=== PATIENT | female | born 1980 | race Hispanic/Latino ===

== ENCOUNTER 2019-09-15 13:00 | Emergency (ER) | payer SELFPAY ==
[2019-09-15] MEDS ORDERED: LIDOCAINE 1% MPF 5 ML VIAL ONE (14:58)
[2019-09-15] MEDS ORDERED: HYDROCODONE/APAP 5/325 MG TAB ONE (14:59)
[2019-09-15] MEDS ORDERED: BUPIVACAINE 0.5% PF 10 ML VIAL ONE (15:30)
[2019-09-15] MEDS ORDERED: SMZ./TMP. 800/160 MG TABLET ONE (15:57)
--- NOTE | 2019-09-15 16:19 | EDPHYS ---
Physician Documentation [facility] Name: Cary aDlton Age: 39 yrs Sex: Female : 1980 Arrival Date: 09/15/2019 Time: 13:02 Bed 6 Private MD: KELLEY Physician Cordell Eaton BARREL BANDER: 09/15 13:26 LMP 09/14/2019 aa5 Historical: - Allergies: 13:26 No Known Allergies; aa5 - PMHx: 13:26 None; aa5 - PSHx: 13:26 Tubal ligation; aa5 - Immunization history:: Adult Immunizations unknown. - Social history:: Smoking status: Patient uses tobacco products, smokes one-half pack cigarettes per day. - Ebola Screening: : No symptoms or risks identified at this time. Vital Signs: 13:26 BP 104 / 74; Pulse 107; Resp 16 S; Temp 97.0(TE); Pulse Ox 100% on R/A; Weight 58.97 kg aa5 (R); Height 4 ft. 11 in. (149.86 cm) (R); Pain 8/10; 15:00 BP 108 / 76; Pulse 100; Resp 15; Pulse Ox 100% on R/A; Pain 7/10; hb 16:00 BP 112 / 74; Pulse 92; Resp 16; Pulse Ox 100% on R/A; hb 13:26 Body Mass Index 26.26 (58.97 kg, 149.86 cm) aa5 Procedures: 15:48 I \T\ D: Incision and drainage was performed for an abscess of the left left middle kb fingernail Prepped with alcohol, Anesthetized with lidocaine/marcaine digital block. Incised with 18G needle. Drained large amount purulent fluid. the patient tolerated the procedure well. Nerve block: (digital) of left middle fingernail Medication: Lidocaine 1% without epinephrine Marcaine 0.5%, Amount: 5 mls were injected, Effect: the patient has resolution of the pain, Set up for procedure. Performed by Almaz MILLER Patient tolerated well. MDM: 14:37 Patient medically screened. tw4 09/15 15:47 Order name: Wound Culture kb Administered Medications: 15:01 Drug: [place] 5 mg-325 mg 1 tabs Route: PO; hb 15:50 Follow up: Response: No adverse reaction hb 15:20 Drug: Lidocaine (1 %) 5 units Volume: 5 ml; Route: Infiltration; hb 16:00 Follow up: Response: No adverse reaction hb 15:40 Drug: Marcaine (0.5 %) 10 ml Volume: 10 ml; Route: Infiltration; hb 16:15 Follow up: Response: No adverse reaction hb 16:15 Drug: Bactrim (160 mg-800 mg (DS) 1 tablet Route: PO; hb 16:31 Follow up: Response: Medication administered at discharge. hb Disposition: 09/16 07:20 Co-signature as Attending Physician, Cordell Eaton MD I agree with the assessment and tw4 plan of care. Disposition: 09/15/19 16:18 Discharged to Home. Impression: Cutaneous abscess of right hand. - Condition is Stable. - Discharge Instructions: Incision and Drainage, Skin Abscess, [id number], Paronychia, [id number]. - Prescriptions for Bactrim DS 800- 160 mg Oral Tablet - take 1 tablet by ORAL route every 12 hours for 5 days; 10 tablet. Ibuprofen 800 mg Oral Tablet - take 1 tablet by ORAL route every 8 hours As needed take with food; 30 tablet. Tylenol- Codeine #3 300-30 mg Oral Tablet - take 2 tablet by ORAL route every 6 hours As needed; 6 tablet. - Medication Reconciliation Form, Thank You Letter, Antibiotic Education, Prescription Opioid Use form. - Follow up: Private Physician; When: Upon discharge from the Emergency Department; Reason: Recheck today's complaints, Continuance of care. - Problem is new. - Symptoms have improved. Signatures: Dispatcher [employer] EDNM Almaz Santamaria, ANGELA FINNEGAN-Kristine Conde, RN RN aa5 Leia Vickers, RN RN Cordell Eaton MD MD tw4 Corrections: (The following items were deleted from the chart) 09/15 16:32 16:18 09/15/2019 16:18 Discharged to Home. Impression: Cutaneous abscess of right hand. hb Condition is Stable. Forms are Medication Reconciliation Form, Thank You Letter, Antibiotic Education, Prescription Opioid Use. Follow up: Private Physician; When: Upon discharge from the Emergency Department; Reason: Recheck today's complaints, Continuance of care. Problem is new. Symptoms have improved. tw4
--- NOTE | 2019-09-15 16:19 | ER ---
Nurse's Notes [facility] Name: Cary Dalton Age: 39 yrs Sex: Female : 1980 Arrival Date: 09/15/2019 Time: 13:02 Bed 6 Private MD: Diagnosis: Cutaneous abscess of right hand Presentation: 09/15 13:25 Presenting complaint: Patient states: pain, redness, and swelling to distal aspect of aa5 left middle finger that began 2 days ago. Transition of care: patient was not received from another setting of care. Onset of symptoms was 2019. Risk Assessment: Do you want to hurt yourself or someone else? Patient reports no desire to harm self or others. Initial Sepsis Screen: Does the patient meet any 2 criteria? No. Patient's initial sepsis screen is negative. Does the patient have a suspected source of infection? No. Patient's initial sepsis screen is negative. Care prior to arrival: None. 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 - Social history:: Smoking status: Patient uses tobacco products, smokes one-half pack cigarettes per day. - Ebola Screening: : No symptoms or risks identified at this time. Screenin:01 Abuse screen: Denies threats or abuse. Denies injuries from another. Nutritional hb screening: No deficits noted. Tuberculosis screening: No symptoms or risk factors identified. Fall Risk None identified. Assessment: 14:40 General: Appears in no apparent distress. Behavior is calm, cooperative. Pain: Pain hb currently is 8 out of 10 on a pain scale. Neuro: Level of Consciousness is awake, alert, obeys commands, Oriented to person, place, time, situation. Cardiovascular: Capillary refill < 3 seconds Patient's skin is warm and dry. Respiratory: Airway is patent Respiratory effort is even, unlabored, Respiratory pattern is regular, symmetrical. GI: No signs and/or symptoms were reported involving the gastrointestinal system. : No signs and/or symptoms were reported regarding the genitourinary system. EENT: No signs and/or symptoms were reported regarding the EENT system. Derm: swelling noted to left middle finger cuticle. Musculoskeletal: No signs and/or symptoms reported regarding the musculoskeletal system. 15:20 Reassessment: Patient appears in no apparent distress at this time. Patient and/or hb family updated on plan of care and expected duration. Pain level reassessed. Patient is alert, oriented x 3, equal unlabored respirations, skin warm/dry/pink. 16:15 Reassessment: Patient appears in no apparent distress at this time. Patient and/or hb family updated on plan of care and expected duration. Pain level reassessed. Patient is alert, oriented x 3, equal unlabored respirations, skin warm/dry/pink. Vital Signs: 13:26 BP 104 / 74; Pulse 107; Resp 16 S; Temp 97.0(TE); Pulse Ox 100% on R/A; Weight 58.97 kg aa5 (R); Height 4 ft. 11 in. (149.86 cm) (R); Pain 8/10; 15:00 BP 108 / 76; Pulse 100; Resp 15; Pulse Ox 100% on R/A; Pain 7/10; hb 16:00 BP 112 / 74; Pulse 92; Resp 16; Pulse Ox 100% on R/A; hb 13:26 Body Mass Index 26.26 (58.97 kg, 149.86 cm) aa5 ED Course: 13:02 Patient arrived in ED. as 13:26 Triage completed. aa5 13:26 Arm band placed on. aa5 14:37 Cordell Eaton MD is Attending Physician. tw4 14:40 Patient has correct armband on for positive identification. Bed in low position. Call hb light in reach. 15:00 Leia Vickers, LORE is Primary Nurse. hb 16:31 No provider procedures requiring assistance completed. Patient did not have IV access hb during this emergency room visit. Administered Medications: 15:01 Drug: [place] 5 mg-325 mg 1 tabs Route: PO; hb 15:50 Follow up: Response: No adverse reaction hb 15:20 Drug: Lidocaine (1 %) 5 units Volume: 5 ml; Route: Infiltration; hb 16:00 Follow up: Response: No adverse reaction hb 15:40 Drug: Marcaine (0.5 %) 10 ml Volume: 10 ml; Route: Infiltration; hb 16:15 Follow up: Response: No adverse reaction hb 16:15 Drug: Bactrim (160 mg-800 mg (DS) 1 tablet Route: PO; 16:31 Follow up: Response: Medication administered at discharge. Outcome: 16:18 Discharge ordered by . tw4 16:31 Discharged to home ambulatory, with family. hb 16:31 Condition: stable 16:31 Discharge instructions given to patient, family, Instructed on discharge instructions, follow up and referral plans. medication usage, wound care, Demonstrated understanding of instructions, follow-up care, medications, Prescriptions given X 3. 16:32 Patient left the ED. Addendum: 09/20/2019 16:23 Addendum: Culture Results: Positive urine culture. Phone call Attempt #1 Not a working s s number Certified letter sent to listed address for patient. Signatures: Saima Alonso Audri, RN RN aa5 Radha Nava RN RN Leia Vickers RN RN Cordell Eaton MD MD tw4
[2019-09-15 16:50] VITALS: TEMP 97; O2SAT 100
[2019-09-15 16:52] VITALS: BP 112/74
== END 2019-09-15 16:32 | disposition home or self-care (01) ==
LOC: ER 13:00
PROC: 0H9GXZZ Drainage of Left Hand Skin, External Approach (ICD-10-PCS; principal; 2019-09-15)
DX: L02.511 Cutaneous abscess of right hand (principal); F17.210 Nicotine dependence, cigarettes, uncomplicated
CPT/HCPCS: 64450; 87070; 87077; 87186; 87205; 99283

== ENCOUNTER 2021-12-20 06:42 | Emergency (ER) | payer SELFPAY ==
[2021-12-20] MEDS ORDERED: ONDANSETRON 4 MG/2 ML VIAL ONE ×2 (07:37→08:23)
[2021-12-20] MEDS ORDERED: MORPHINE 4 MG/ML SYR ONE (07:37)
[2021-12-20] MEDS ORDERED: NA CHLORIDE 0.9% 1,000 ML ONE ×2 (07:38→08:23)
[2021-12-20 07:57] LABS: Absolute Lymphocytes (CBC) 1.1 K/uL (0.7-4.9); Hematocrit 39.1 % (36.0-45.0); Lymphocytes % 8.1 % (15.3-44.8); MPV 8.2 fL (7.6-11.3); RBC Red Blood Cell Count 4.37 M/uL (3.86-4.86)
--- NOTE | 2021-12-20 08:01 | RAD REPORT ---
EXAM DESCRIPTION: CTStone Protocol - 12/20/2021 7:53 am CLINICAL HISTORY: ABD PAIN COMPARISON: No comparisons TECHNIQUE: CT of the abdomen and pelvis was performed. All CT scans are performed using dose optimization technique as appropriate and may include automated exposure control or mA/KV adjustment according to patient size. FINDINGS: Lower chest: Small hiatal hernia. Liver: Benign-appearing low-density lesion in the right hepatic lobe measuring 4.3 cm. A second small er lesion is present in the inferior aspect of the right hepatic lobe measuring 1.9 cm which also has benign imaging features. . Biliary: No biliary ductal dilatation. Stomach: No significant focal abnormality. Duodenum: No significant focal abnormality. Pancreas: No significant abnormality. Spleen: No significant abnormality. Adrenal: No suspicious lesions. Kidney/ureter: Mild right-sided hydroureteronephrosis secondary to a 5 mm stone at the right distal u reter. Other right renal calculi noted measuring 7 millimeters in aggregate. Retroperitoneum: No retroperitoneal adenopathy. Vascular: No aneurysm. Bowel: Diverticulosis. No evidence of acute diverticulitis.. Normal appendix. Peritoneum: No ascites or free air. Bladder: Grossly unremarkable. Reproductive: No adnexal masses. Bones: No acute fracture. Other: n/a IMPRESSION: Mild right-sided hydroureteronephrosis secondary to a 5 mm stone at the right distal ure ter.
--- NOTE | 2021-12-20 08:06 | RAD REPORT ---
EXAM DESCRIPTION: US - Abdomen Exam Limited - 12/20/2021 8:00 am CLINICAL HISTORY: ABD PAIN COMPARISON: Stone Protocol dated 12/20/2021 FINDINGS: The gallbladder demonstrates no gallstones. No pericholecystic fluid or gallbladder wall t hickening. The common bile duct is normal measuring 3 mm. The liver demonstrates no findings of intrahepatic biliary dilatation. IMPRESSION: Unremarkable examination.
--- NOTE | 2021-12-20 08:12 | ER ---
Nurse's Notes [facility] Name: Cary Dalton Age: 41 yrs Sex: Female : 1980 Arrival Date: 12/20/2021 Time: 06:47 Bed 13 Private MD: Diagnosis: Hydronephrosis with renal and ureteral calculous obstruction-5 mm distal right ;Hypokalemia Presentation: 12/20 07:16 Chief complaint: Patient states: she started having severe right abdominal pain last ap3 night 12/19/2021. Patient states pain came on suddenly and lasted through the night. Coronavirus screen: At this time, the client does not indicate any symptoms associated with coronavirus-19. Ebola Screen: No symptoms or risks identified at this time. Risk Assessment: Do you want to hurt yourself or someone else? Patient reports no desire to harm self or others. Onset of symptoms was December 19, 2021. 07:16 Method Of Arrival: Wheelchair ap3 07:16 Acuity: MARK 3 ap3 07:16 Initial Sepsis Screen: Does the patient meet any 2 criteria? No. Patient's initial bp sepsis screen is negative. Does the patient have a suspected source of infection? No. Patient's initial sepsis screen is negative. Triage Assessment: 07:21 General: Appears distressed, uncomfortable, Behavior is crying, restless. Pain: ap3 Complains of pain in right upper quadrant and right lower quadrant Pain currently is 10 out of 10 on a pain scale. Pain began suddenly, last night Noted to be crying, grimacing, guarding, moaning, restless, Also complains of nausea. Neuro: Level of Consciousness is awake, alert, obeys commands, Oriented to person, place, time, situation. Cardiovascular: Patient's skin is warm and dry. Respiratory: Airway is patent Respiratory effort is even, unlabored, Respiratory pattern is regular, symmetrical. GI: Reports lower abdominal pain, upper abdominal pain, nausea, vomiting. 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 Flu vaccine is not up to date. - Social history:: Smoking status: Patient reports the use of cigarette tobacco products, smokes one-half pack cigarettes per day. Screenin:23 Abuse screen: Denies threats or abuse. Nutritional screening: No deficits noted. ap3 Tuberculosis screening: No symptoms or risk factors identified. 07:24 Fall Risk None identified. No fall in past 12 months (0 pts). No secondary diagnosis (0 ap3 pts). Assessment: 07:20 General: SEE TRIAGE NOTE. GI: Abdomen is non-distended. bp 08:30 Reassessment: D/C ON HELD FOR IVF, LABS AND MEDS. bp 10:30 Reassessment: IVF INFUSING. bp 11:10 Reassessment: IVF AND MEDICATION COMPLETED. PT D/C HOME AMBULATORY WITH FAMILY, DX WITH bp HYDRONEPHROSIS AND URETERAL STONE. Vital Signs: 07:16 BP 129 / 84; Pulse 86; Resp 24; Temp 98.6(TE); Pulse Ox 100% ; Weight 65.77 kg; Height bp 4 ft. 11 in. (149.86 cm); Pain 10/10; 09:30 BP 131 / 87; Pulse 85; Resp 20; Pulse Ox 100% ; bp 11:12 BP 121 / 79; Pulse 81; Resp 17; Pulse Ox 100% ; bp 07:16 Body Mass Index 29.29 (65.77 kg, 149.86 cm) bp ED Course: 06:47 Patient arrived in ED. bp1 07:17 Triage completed. ap3 07:20 Evangelist Art, LORE is Primary Nurse. bp 07:23 Davis Machado MD is Attending Physician. aneta 07:23 Arm band placed on. bp 07:24 Patient has correct armband on for positive identification. Bed in low position. Call ap3 light in reach. Side rails up X2. Adult w/ patient. Pulse ox on. NIBP on. Door closed. Noise minimized. Warm blanket given. 07:45 Inserted saline lock: 20 gauge in right forearm, using aseptic technique. Blood bp collected. 07:55 CT Stone Protocol In Process Unspecified. EDMS 08:01 US Abdomen Limited In Process Unspecified. EDMS 08:11 Andres Darby MD is Referral Physician. aneta 11:12 No provider procedures requiring assistance completed. IV discontinued, intact, bp bleeding controlled, No redness/swelling at site. Pressure dressing applied. Administered Medications: 07:45 Drug: NS 0.9% 1000 ml Route: IV; Rate: 1 bolus; Site: right forearm; bp 09:40 Follow up: IV Status: Completed infusion; IV Intake: 1000ml bp 07:45 Drug: Zofran (Ondansetron) 4 mg Route: IVP; Site: right forearm; bp 09:40 Follow up: Response: No adverse reaction bp 07:45 Drug: morphine 4 mg Route: IVP; Site: right forearm; bp 09:39 Follow up: Response: No adverse reaction bp 07:45 Drug: Zofran (Ondansetron) 4 mg Route: IVP; Site: right forearm; bp 09:39 Follow up: Response: No adverse reaction bp 08:15 Drug: Ketorolac 30 mg Route: IVP; Site: right forearm; bp 09:39 Follow up: Response: Pain is decreased bp 08:15 Drug: NS 0.9% 1000 ml Route: IV; Rate: 1 bolus; Site: right forearm; bp 11:13 Follow up: IV Status: Completed infusion; IV Intake: 1000ml bp 08:15 Drug: Dilaudid (HYDROmorphone) 1 mg Route: IVP; Site: right forearm; bp 09:39 Follow up: Response: Pain is decreased bp 08:15 Drug: Zofran (Ondansetron) 4 mg Route: IVP; Site: right forearm; bp 09:39 Follow up: Response: Nausea is decreased bp 08:15 Drug: Rocephin (cefTRIAXone) 1 grams Route: IV; Rate: per protocol; Site: right forearm;bp 09:38 Follow up: IV Status: Completed infusion; IV Intake: 50ml bp 08:15 Drug: Flomax (tamsulosin) 0.4 mg Route: PO; bp 09:39 Follow up: Response: No adverse reaction bp 10:02 Drug: Potassium Effervescent Tablet 50 mEq Route: PO; bp 10:02 Follow up: Response: No adverse reaction bp Intake: 09:38 IV: 50ml; Total: 50ml. bp 09:40 IV: 1000ml; Total: 1050ml. bp 11:13 IV: 1000ml; Total: 2050ml. bp Outcome: 08:11 Discharge ordered by . aneta 11:12 Discharged to home ambulatory, with family. bp 11:12 Condition: stable 11:12 Discharge instructions given to patient, Instructed on discharge instructions, follow up and referral plans. medication usage, Demonstrated understanding of instructions, follow-up care, medications, Prescriptions given X 4. 11:13 Patient left the ED. bp Signatures: Dispatcher [employer] EDDavis Lucas MD MD cha Peltier, Brian RN RN bp Nolvia Delgado RN RN ap3 Bettie Salgado bp1 Corrections: (The following items were deleted from the chart) 07:23 07:16 BP 129 / 84; Temp 98.6F Temporal; 65.77 kg; Height 4 ft. 11 in.; BMI: 29.2; Pain bp 10/10; ap3
--- NOTE | 2021-12-20 08:12 | EDPHYS ---
Physician Documentation [facility] Name: Cary Dalton Age: 41 yrs Sex: Female : 1980 Arrival Date: 12/20/2021 Time: 06:47 Bed 13 Private MD: KELLEY Physician Davis Machado HPI: 12/20 08:08 This 41 yrs old Female presents to ER via Wheelchair with complaints of aneta Vomiting, Abdominal Pain. 08:08 The patient presents to the emergency department with nausea, vomiting, abdominal pain, aneta of the posterior aspect of right lateral abdomen, anterior aspect of right lateral abdomen and right lower quadrant. Onset: The symptoms/episode began/occurred 1 day(s) ago. Possible causes: unknown. The symptoms are aggravated by nothing. The symptoms are alleviated by nothing. Associated signs and symptoms: Pertinent positives: abdominal pain, nausea, vomiting. Severity of symptoms: At their worst the symptoms were severe in the emergency department the symptoms are unchanged. The patient has not experienced similar symptoms in the past. CLINICAL SERVICES SPECIALIST: 07:24 LMP N/A - patient states she can't remember ap3 Historical: - Allergies: 07:17 No Known Allergies; ap3 - Home Meds: 07:17 None [Active]; ap3 - PMHx: 07:17 None; ap3 - Immunization history:: Client reports having NOT received the Covid vaccine. Flu vaccine is not up to date. - Social history:: Smoking status: Patient reports the use of cigarette tobacco products, smokes one-half pack cigarettes per day. ROS: 08:09 Constitutional: Negative for fever, chills, and weight loss, Eyes: Negative for injury, aneta pain, redness, and discharge, ENT: Negative for injury, pain, and discharge, Neck: Negative for injury, pain, and swelling, Cardiovascular: Negative for chest pain, palpitations, and edema, Respiratory: Negative for shortness of breath, cough, wheezing, and pleuritic chest pain, : Negative for injury, bleeding, discharge, and swelling, MS/Extremity: Negative for injury and deformity, Skin: Negative for injury, rash, and discoloration, Neuro: Negative for headache, weakness, numbness, tingling, and seizure, Psych: Negative for depression, anxiety, suicide ideation, homicidal ideation, and hallucinations, Allergy/Immunology: Negative for hives, rash, and allergies, Endocrine: Negative for neck swelling, polydipsia, polyuria, polyphagia, and marked weight changes, Hematologic/Lymphatic: Negative for swollen nodes, abnormal bleeding, and unusual bruising. 08:09 Abdomen/GI: Positive for abdominal pain, nausea and vomiting, of the posterior aspect of right lateral abdomen, anterior aspect of right lateral abdomen and right lower quadrant. 08:09 Back: Positive for flank pain, on the right. Exam: 08:09 Constitutional: This is a well developed, well nourished patient who is awake, alert, aneta and in no acute distress. Head/Face: Normocephalic, atraumatic. Eyes: Pupils equal round and reactive to light, extra-ocular motions intact. Lids and lashes normal. Conjunctiva and sclera are non-icteric and not injected. Cornea within normal limits. Periorbital areas with no swelling, redness, or edema. ENT: Nares patent. No nasal discharge, no septal abnormalities noted. Tympanic membranes are normal and external auditory canals are clear. Oropharynx with no redness, swelling, or masses, exudates, or evidence of obstruction, uvula midline. Mucous membranes moist. Neck: Trachea midline, no thyromegaly or masses palpated, and no cervical lymphadenopathy. Supple, full range of motion without nuchal rigidity, or vertebral point tenderness. No Meningismus. Chest/axilla: Normal chest wall appearance and motion. Nontender with no deformity. No lesions are appreciated. Cardiovascular: Regular rate and rhythm with a normal S1 and S2. No gallops, murmurs, or rubs. Normal PMI, no JVD. No pulse deficits. Respiratory: Lungs have equal breath sounds bilaterally, clear to auscultation and percussion. No rales, rhonchi or wheezes noted. No increased work of breathing, no retractions or nasal flaring. Abdomen/GI: Soft, non-tender, with normal bowel sounds. No distension or tympany. No guarding or rebound. No evidence of tenderness throughout. Back: No spinal tenderness. No costovertebral tenderness. Full range of motion. Female : Normal external genitalia. Skin: Warm, dry with normal turgor. Normal color with no rashes, no lesions, and no evidence of cellulitis. MS/ Extremity: Pulses equal, no cyanosis. Neurovascular intact. Full, normal range of motion. Neuro: Awake and alert, GCS 15, oriented to person, place, time, and situation. Cranial nerves II-XII grossly intact. Motor strength 5/5 in all extremities. Sensory grossly intact. Cerebellar exam normal. Normal gait. Psych: Awake, alert, with orientation to person, place and time. Behavior, mood, and affect are within normal limits. Vital Signs: 07:16 BP 129 / 84; Pulse 86; Resp 24; Temp 98.6(TE); Pulse Ox 100% ; Weight 65.77 kg; Height bp 4 ft. 11 in. (149.86 cm); Pain 10/10; 09:30 BP 131 / 87; Pulse 85; Resp 20; Pulse Ox 100% ; bp 11:12 BP 121 / 79; Pulse 81; Resp 17; Pulse Ox 100% ; bp 07:16 Body Mass Index 29.29 (65.77 kg, 149.86 cm) bp MDM: 07:23 Patient medically screened. aneta 08:10 Differential diagnosis: nephrolithiasis, pyelonephritis, UTI, cholecystitis, aneta pancreatitis, gastroenteritis. Data reviewed: vital signs, nurses notes, lab test result(s), radiologic studies, CT scan. Data interpreted: quality assurance monitor chassis: rate is 86 beats/min, rhythm is regular, Pulse oximetry: on room air is 100 %. Counseling: I had a detailed discussion with the patient and/or guardian regarding: the historical points, exam findings, and any diagnostic results supporting the discharge/admit diagnosis, lab results, radiology results, the need for outpatient follow up, for definitive care, a family practitioner, a urologist. 12/20 07:24 Order name: CBC with Diff; Complete Time: 09:40 [facility] 12/20 07:24 Order name: CMP; Complete Time: 09:40 [facility] 12/20 07:24 Order name: Lipase; Complete Time: 09:40 [facility] 12/20 07:24 Order name: Urine Microscopic Only [facility] 12/20 08:02 Order name: CBC Smear Scan; Complete Time: 09:40 EDMT 12/20 09:36 Order name: Urine Dipstick-Ancillary; Complete Time: 09:40 EDMT 12/20 07:24 Order name: CT Stone Protocol; Complete Time: 08:06 [facility] 12/20 07:32 Order name: US Abdomen Limited; Complete Time: 08:06 [facility] 12/20 10:21 Order name: Urine Culture EDMT 12/20 07:24 Order name: IV Saline Lock; Complete Time: 08:02 aneta 12/20 07:24 Order name: Labs collected and sent; Complete Time: 08:02 [facility] 12/20 07:24 Order name: Urine Dipstick-Ancillary (obtain specimen); Complete Time: 09:40 aneta 12/20 07:24 Order name: Urine Test (obtain specimen); Complete Time: 09:40 [facility] 12/20 08:04 Order name: Labs - recollect needed: recollect all tubes; Complete Time: 09:31 bd 12/20 09:40 Order name: PO challenge: juice; Complete Time: 09:41 [facility] Administered Medications: 07:45 Drug: NS 0.9% 1000 ml Route: IV; Rate: 1 bolus; Site: right forearm; bp 09:40 Follow up: IV Status: Completed infusion; IV Intake: 1000ml bp 07:45 Drug: Zofran (Ondansetron) 4 mg Route: IVP; Site: right forearm; bp 09:40 Follow up: Response: No adverse reaction bp 07:45 Drug: morphine 4 mg Route: IVP; Site: right forearm; bp 09:39 Follow up: Response: No adverse reaction bp 07:45 Drug: Zofran (Ondansetron) 4 mg Route: IVP; Site: right forearm; bp 09:39 Follow up: Response: No adverse reaction bp 08:15 Drug: Ketorolac 30 mg Route: IVP; Site: right forearm; bp 09:39 Follow up: Response: Pain is decreased bp 08:15 Drug: NS 0.9% 1000 ml Route: IV; Rate: 1 bolus; Site: right forearm; bp 11:13 Follow up: IV Status: Completed infusion; IV Intake: 1000ml bp 08:15 Drug: Dilaudid (HYDROmorphone) 1 mg Route: IVP; Site: right forearm; bp 09:39 Follow up: Response: Pain is decreased bp 08:15 Drug: Zofran (Ondansetron) 4 mg Route: IVP; Site: right forearm; bp 09:39 Follow up: Response: Nausea is decreased bp 08:15 Drug: Rocephin (cefTRIAXone) 1 grams Route: IV; Rate: per protocol; Site: right forearm;bp 09:38 Follow up: IV Status: Completed infusion; IV Intake: 50ml bp 08:15 Drug: Flomax (tamsulosin) 0.4 mg Route: PO; bp 09:39 Follow up: Response: No adverse reaction bp 10:02 Drug: Potassium Effervescent Tablet 50 mEq Route: PO; bp 10:02 Follow up: Response: No adverse reaction bp Disposition Summary: 12/20/21 08:11 Discharge Ordered Location: Home aneta Problem: new aneta Symptoms: have improved aneta Condition: Stable aneta Diagnosis - Hydronephrosis with renal and ureteral calculous obstruction - 5 mm distal right aneta - Hypokalemia aneta Followup: aneta - With: Private Physician - When: 2 - 3 days - Reason: Recheck today's complaints, Continuance of care, Re-evaluation by your physician Followup: aneta - With: Andres Darby MD - When: 2 - 3 days - Reason: Recheck today's complaints, Re-evaluation by your physician Discharge Instructions: - Discharge Summary Sheet aneta - Kidney Stones aneta - Kidney Stones, [id number] aneta - Hydronephrosis aneta - Dietary Guidelines to Help Prevent Kidney Stones aneta Forms: - Medication Reconciliation Form aneta - Thank You Letter aneta - Antibiotic Education aneta - Prescription Opioid Use aneta - Work release form ap3 - Family Work Release ap3 Prescriptions: - tamsulosin 0.4 mg Oral capsule - take 1 capsule by ORAL route once daily 1/2 hour following the same meal each [facility] day; 20 capsule; Refills: 0, Product Selection Permitted - Zofran 4 mg Oral Tablet - take 1 tablet by ORAL route every 12 hours As needed; 20 tablet; Refills: 0, [facility] Product Selection Permitted - Cipro 500 mg Oral Tablet - take 1 tablet by ORAL route every 12 hours for 7 days; 14 tablet; Refills: 0, [facility] Product Selection Permitted - Tylenol-Codeine #3 300 mg-30 mg Oral - take 2 tablet by ORAL route every 6 hours; 24 tablet; Refills: 0, Product [facility] Selection Permitted Signatures: Dispatcher [employer] Kimberley Goins Corey, MD MD cha Peltier, Brian RN RN bp Nolvia Delgado RN RN ap3
[2021-12-20] MEDS ORDERED: HYDROMORPHONE HCL 1 MG/ML INJ ONE (08:22)
[2021-12-20] MEDS ORDERED: KETOROLAC 30 MG/ML INJ ONE (08:23)
[2021-12-20] MEDS ORDERED: TAMSULOSIN 0.4 MG SR CAP ONE (08:23)
[2021-12-20] MEDS ORDERED: CEFTRIAXONE 1000 MG/VIAL ONE (08:23)
[2021-12-20 09:11] LABS: Blood Morphology Comment NOT SEEN (NOT SEEN); Platelet Estimate ADEQ; White Blood Cell Scan OK (OK)
[2021-12-20 09:35] LABS: Urine Blood Trace-intact (Negative); Urine Glucose Negative (Negative); Urine Protein 1+ (Negative); Urine Specific Gravity 1.015 (1.005-1.030); Urine pH 8.5 (5.0-7.0)
[2021-12-20 09:35] LABS: Bilirubin Total 0.7 mg/dL (0.2-1.0); Protein, Total 6.5 g/dL (6.4-8.2)
[2021-12-20 09:38] LABS: Potassium 2.9 mmol/L (3.5-5.1)
[2021-12-20] MEDS ORDERED: POTASSIUM 25 MEQ EFFERV TAB ONE (10:03)
[2021-12-20 10:18] LABS: Urine Bacteria 20-50 /HPF (<20)
[2021-12-20 15:43] VITALS: TEMP 98.6; O2SAT 100
[2021-12-20 15:45] VITALS: BP 121/79
== END 2021-12-20 11:13 | disposition home or self-care (01) ==
LOC: ER 06:42
DX: N13.2 Hydronephrosis with renal and ureteral calculous obstruction (principal); E87.6 Hypokalemia; R11.2 Nausea with vomiting, unspecified; F17.210 Nicotine dependence, cigarettes, uncomplicated
CPT/HCPCS: 36415; 74176; 76377; 76705; 80053; 81003; 81015; 83690; 85025; 87086; 87088; 96361; 96365; 96375; 99284; J1170; J2405; J7030